=== PATIENT | female | born 1945 | race Caucasian/White ===

== ENCOUNTER 2022-09-10 13:31 | Inpatient (IN) ==
--- NOTE | 2022-09-10 13:52 | Emergency Department Note ---
History of Present Illness General Chief complaint: Foot Injury/Pain Stated complaint: REF BY , RT FOOT INJURY Time Seen by Provider: 09/10/22 13:51 History of Present Illness Maximum Pain Intensity: 4 This 76-year-old female patient presents to the emergency department for evalu ation of osteomyelitis of the right second toe as well as a cellulitis of the right leg. She saw Dr. Galloway today who confirmed the infection in the toe and sent her to the ER for a possible OR add-on. The patient has a history of diabetes and pacemaker. She states that she has had the infection for the past month. She has a black lab at home and stepped on her foot about 1 month ago. The patient thought the toe might be broken, but did not see anyone about it. About 1 week ago she saw Dr. Galloway because the toe and foot got very red and more painful and she was started on Keflex. Today she saw Dr. Galloway for follow up and he noted that the infection got a lot worse. Coumadin is listed on her med list from 2010, but she is now on Xarelto per her med list. Also takes pregabalin 200 mg, omeprazole 40 mg, Jardiance 25 mg, Ranolazine 500 mg, Metoprolol 50 mg, and atorvastatin 40 mg in addition to the Xarelto 20 mg. She had coffee and 3 cookies at 6 am, but has not had anything else to eat or drink today. The patient gives permission to speak with her daughter Dilma who is a nurse at [phone]. Home Medications Medication Instructions Recorded Confirmed Type atorvastatin 40 mg tablet 40 mg PO HS 09/10/22 09/10/22 History cephalexin 500 mg capsule 500 mg PO Q8H 09/10/22 09/10/22 History dulaglutide 3 mg/0.5 mL 3 mg subcut USEASDIRECTD 09/10/22 09/10/22 History subcutaneous pen injector (Trulicity) empagliflozin 25 mg tablet 25 mg PO DAILY 09/10/22 09/10/22 History (Jardiance) insulin degludec 100 unit/mL (3 50 unit subcut DAILY 09/10/22 09/10/22 History mL) subcutaneous pen metoprolol succinate 50 mg 50 mg PO QAM 09/10/22 09/10/22 History tablet,extended release 24 hr omeprazole 40 mg capsule,delayed 40 mg PO DAILY 09/10/22 09/10/22 History release pregabalin 200 mg capsule 200 mg PO QAM 09/10/22 09/10/22 History ranolazine 500 mg tablet,extended 500 mg PO QAM 09/10/22 09/10/22 History release,12 hr rivaroxaban 20 mg tablet (Xarelto) 20 mg PO QAM 09/10/22 09/10/22 History Allergies Allergy/AdvReac Type Severity Reaction Status Date / Time azithromycin Allergy Unknown Unknown Verified 04/20/19 10:23 chocolate flavor Allergy Unknown "my airway Unverified 04/22/10 07:19 can close off" coconut AdvReac Unknown "nausea Verified 04/22/10 08:14 and vomiting" Past Med/Surg History Medical History (Updated 09/11/22 @ 00:13 by Cici Sahni PA-C) Acquired deformity of left foot Atrial fibrillation Callus Diabetes mellitus with diabetic polyneuropathy Encounter for pre-operative examination Foot swelling Hallux rigidus, left foot Hallux rigidus, right foot History of pacemaker 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 Surgical History H/O section Hx of shoulder replacement S/P cardiac pacemaker procedure Family History Other Family history unknown Social History Smoking Status: Never smoker Hx Alcohol Use: No Hx Substance Use: No Preferred Language: Mohawk Communication Ability: Effective [employer] Required: No Beliefs That Will Affect Care: None Current Living Situation: Family Current Living Situation Comment: Lives at home with grandson and dog Other Information That Helps Us Care for You: Yes ( 3 years ago) Feels Safe at Home: Yes Safety Concerns: Feels Safe At This Time Assistive Devices: Cane and Walker Assistive Devices Comment: has walker and cane at home, reports does not use them Review of Systems See HPI for pertinent positives & negatives. Physical Exam Vital Signs Vital Signs - 24 hr 09/10/22 13:43 09/10/22 15:02 09/10/22 17:45 Temperature 36.5 C 36.6 C Temperature Source Oral Oral Pulse Rate 64 68 Pulse Rate [Finger] 72 Respiratory Rate 18 18 Respiratory Effort / Characteristics Non-Labored Spontaneous Respiratory Depth Normal Respiratory Pattern Regular Blood Pressure 155/74 H Blood Pressure [Right Arm] 153/71 H Blood Pressure Mean 101 Blood Pressure Mean [Right Arm] 98 Blood Pressure Position Sitting Blood Pressure Position [Right Arm] Sitting Pulse Oximetry 99 98 Oxygen Delivery Method Room Air Room Air Sepsis Recent Fever Within 48 Hours No Sepsis New/Unexplained Change in Mental Status No Sepsis Action Taken by Nursing No Action Required VITALS: Vitals are noted on the nurse's note and reviewed by myself. GENERAL: Non toxic, no acute distress, non-diaphoretic. SKIN: There is erythema, mild edema, and mild warmth mainly to the right foot, but with some extension to the distal tib/fib area The patient's right second toe is erythematous, edematous, and has an ulcerative area to the plantar aspect of the toe. Mild seepage present. Capillary refill <2 sec. EYES: PERRLA. EOMI. Conjunctivae without injection, sclerae without icterus. MOUTH: Mucous membranes moist. Uvula midline. Airway patent. NECK: Supple without nuchal rigidity. HEART: Regular rate and rhythm without murmurs gallops or rubs. LUNGS: Clear to auscultation bilaterally without wheezes, rales or rhonchi. No retractions or accessory muscle use. ABDOMEN: Positive bowel sounds x 4. Normal tympanic percussion. Soft, nontender, without masses or organomegaly. Saldana sign negative. No guarding or rebound tenderness. No focal RLQ or LLQ tenderness. MUSCULOSKELETAL: The patient is tender to palpation diffusely over the right foot, but mostly tender to palpation over the right second toe. Dorsalis pedis and posterior tibial pulses 2+ Course Administered Medications Atorvastatin Calcium (Atorvastatin 40 Mg Tab) 40 mg PO HS TRAMAINE Stop: 10/10/22 20:59 Last Admin: 09/10/22 21:58 Dose: 40 mg Documented By: JOSIAS Cefepime HCl 2,000 mg/ Syringe 20 mls @ 5 mls/min IV Q8H TRAMAINE; Protocol Stop: 10/23/22 00:00 Last Admin: 09/10/22 23:24 Dose: 5 mls/min Documented By: JOSIAS Magnesium Sulfate/Dextrose (Magnesium Sulfate / D5w) 1 gm in 100 mls @ 50 mls/hr IV Q2H TRAMAINE Stop: 09/11/22 02:59 Last Admin: 09/10/22 23:27 Dose: 50 mls/hr Documented By: JOSIAS Insulin Aspart (Insulin Aspart Per Unit Charge) 0 units SC ACHS TRAMAINE Stop: 10/10/22 20:34 Last Admin: 09/10/22 22:14 Dose: Not Given Documented By: JOSIAS Co-signed By: [place] Admin: 09/10/22 22:13 Dose: Not Given Documented By: GCB Co-signed By: [place] Discontinued Medications Bupivacaine HCl (Bupivacaine 0.5 % 5 Mg/1 Ml Mpf 30ml Vial) Confirm Administered Dose 30 ml .ROUTE .STK-MED ONE Stop: 09/10/22 18:16 Last Admin: 09/10/22 18:56 Dose: 30 ml Documented By: [id number] Hydralazine HCl (Hydralazine Hcl 20 Mg/Ml Vial) 5 mg IV NOW ONE Stop: 09/10/22 21:57 Last Admin: 09/10/22 22:18 Dose: 5 mg Documented By: JOSIAS Sodium Chloride (Nss) 500 mls @ 999 mls/hr IV .Q31M ONE Stop: 09/10/22 14:49 Last Infusion: 09/10/22 20:35 Dose: 0 mls/hr Documented By: Admin: 09/10/22 15:17 Dose: 999 mls/hr Documented By: SAMIRA Cefepime HCl (Maxipime) 20 mls @ 5 mls/min IV ONE STA; Protocol Stop: 09/10/22 16:01 Last Admin: 09/10/22 22:39 Dose: Not Given Documented By: JOSIAS Magnesium Sulfate/Dextrose (Magnesium Sulfate / D5w) 1 gm in 100 mls @ 50 mls/hr IV ONE ONE Stop: 09/10/22 18:05 Last Admin: 09/10/22 22:49 Dose: Not Given Documented By: JOSIAS Medical Decision Making Differential Diagnosis Differential diagnosis includes osteomyelitis, cellulitis, abscess, necrosis, DVT, SVT, fracture, or others. Laboratory Data Attestation: I reviewed the patient's lab results. 09/10/22 14:30 09/10/22 14:30 Lab Results 09/10/22 09/10/22 09/10/22 Range/Units 14:30 14:30 14:30 WBC 5.95 (4.8-10.8) K/ul RBC 4.40 (4.20-5.40) M/uL Hgb 12.0 (12.0-16.0) g/dl Hct 36.3 L (37.0-47.0) % MCV 82.5 (80.0-100.0) fL MCH 27.3 (25.0-34.0) pg MCHC 33.1 (32.0-36.0) g/dL RDW Std Deviation 42.1 (36.4-46.3) fL RDW Coeff of Aletha 14.2 (11.5-14.5) % Plt Count 174 (130-400) K/uL MPV 11.6 (9.4-12.4) fL Immature Gran % (Auto) 0.3 % Neut % (Auto) 68.6 % Lymph % (Auto) 15.6 % [place] % (Auto) 10.1 % Eos % (Auto) 4.2 % Baso % (Auto) 1.2 % Neut # (Auto) 4.08 (1.40-6.50) K/uL Lymph # (Auto) 0.93 L (1.2-3.4) K/uL [place] # (Auto) 0.60 H (0.11-0.59) K/uL Eos # (Auto) 0.25 (0-0.50) K/uL Baso # (Auto) 0.07 (0-0.2) K/uL Immature Gran # (Auto) 0.02 (0.01-0.20) K/uL PT 12.1 H (9.0-12.0) Seconds INR 1.1 (0.9-1.1) APTT 31.1 H (21.0-31.0) Seconds PTT Ratio 1.1 Sodium (136-145) mmol/L Potassium (3.5-5.1) mmol/L Chloride (98-107) mmol/L Carbon Dioxide (21-32) mmol/L Anion Gap (3-11) BUN (6-23) mg/dl Creatinine (0.6-1.2) mg/dl Est Cr Clr Drug Dosing ml/min Est GFR ( Amer) ml/min Est GFR (Non-Af Amer) ml/min BUN/Creatinine Ratio (10-20) Glucose (70-99(Fasting)) mg/dl Lactate 1.1 (0.4-2.0) mmol/L Calcium (8.6-10.3) mg/dl Magnesium (1.7-2.4) mg/dl Total Bilirubin (0.2-1.0) mg/dl AST (13-39) U/L ALT (7-52) U/L Alkaline Phosphatase (34-104) U/L Total Protein (6.0-8.3) gm/dl Albumin (3.4-5.0) gm/dl Globulin (2.5-4.0) gm/dl Albumin/Globulin Ratio (0.9-2) Procalcitonin (0-0.5) ng/ml SARS-CoV-2, RNA, NAAT (NEGATIVE) 09/10/22 09/10/22 09/10/22 Range/Units 14:30 14:30 14:39 WBC (4.8-10.8) K/ul RBC (4.20-5.40) M/uL Hgb (12.0-16.0) g/dl Hct (37.0-47.0) % MCV (80.0-100.0) fL MCH (25.0-34.0) pg MCHC (32.0-36.0) g/dL RDW Std Deviation (36.4-46.3) fL RDW Coeff of Aletha (11.5-14.5) % Plt Count (130-400) K/uL MPV (9.4-12.4) fL Immature Gran % (Auto) % Neut % (Auto) % Lymph % (Auto) % [place] % (Auto) % Eos % (Auto) % Baso % (Auto) % Neut # (Auto) (1.40-6.50) K/uL Lymph # (Auto) (1.2-3.4) K/uL [place] # (Auto) (0.11-0.59) K/uL Eos # (Auto) (0-0.50) K/uL Baso # (Auto) (0-0.2) K/uL Immature Gran # (Auto) (0.01-0.20) K/uL PT (9.0-12.0) Seconds INR (0.9-1.1) APTT (21.0-31.0) Seconds PTT Ratio Sodium 139 (136-145) mmol/L Potassium 3.7 (3.5-5.1) mmol/L Chloride 105 (98-107) mmol/L Carbon Dioxide 27 (21-32) mmol/L Anion Gap 7 (3-11) BUN 14 (6-23) mg/dl Creatinine 0.79 (0.6-1.2) mg/dl Est Cr Clr Drug Dosing 62.6 ml/min Est GFR ( Amer) 84.9 ml/min Est GFR (Non-Af Amer) 73.2 ml/min BUN/Creatinine Ratio 17.7 (10-20) Glucose 91 (70-99(Fasting)) mg/dl Lactate (0.4-2.0) mmol/L Calcium 9.3 (8.6-10.3) mg/dl Magnesium 1.2 L (1.7-2.4) mg/dl Total Bilirubin 1.2 H (0.2-1.0) mg/dl AST 26 (13-39) U/L ALT 11 (7-52) U/L Alkaline Phosphatase 85 (34-104) U/L Total Protein 8.0 (6.0-8.3) gm/dl Albumin 3.2 L (3.4-5.0) gm/dl Globulin 4.8 H (2.5-4.0) gm/dl Albumin/Globulin Ratio 0.7 L (0.9-2) Procalcitonin < 0.05 (0-0.5) ng/ml SARS-CoV-2, RNA, NAAT NEGATIVE (NEGATIVE) Imaging Data Radiologist's Impression: Chest X-Ray 09/10/22 14:19 XR chest 1V portable CLINICAL HISTORY: pre-op TECHNIQUE: Single frontal radiograph of the chest was obtained. Comparison: None available at the time of this dictation. FINDINGS: Dual lead pacemaker is seen. Left humeral plate and screw fixation hardware is seen. Right reverse shoulder arthroplasty is seen. Cardiomegaly is noted. The lungs are clear. No evidence of pleural effusion or pneumothorax. IMPRESSION: No acute chest disease. ACT 112: Negative or not required by law. Electronically signed by: Larry Lamb M.D. 09/10/2022 3:19 PM Foot X-Ray 09/10/22 14:19 RIGHT FOOT 3 VIEWS CLINICAL HISTORY: Right foot infection. FINDINGS: 3 views of the right foot are obtained. No prior studies are available for comparison at the time of dictation. The skeletal structures are osteopenic. No acute fracture is seen. There is chronic posttraumatic deformity of the fourth proximal phalanx. Erosive destructive change is seen involving the tuft of the second distal phalanx with overlying soft tissue edema and subcutaneous gas. This is consistent with osteomyelitis. No additional foci of bony erosion are seen throughout the foot. There are large dorsal and plantar heel spurs. Mild osteoarthritic change is seen throughout the foot, greatest at the first metatarsophalangeal joint. Diffuse soft tissue edema is present throughout the foot. IMPRESSION: 1. Erosive destructive change involving the tuft of the second distal phalanx is consistent with osteomyelitis. 2. No additional foci of bony destruction are seen throughout the remainder of the foot. 3. Diffuse soft tissue edema. Electronically signed by: Raul Cueto M.D. 09/10/2022 3:17 PM [facility] Narrative I examined the patient. The patient has failed outpatient treatment with Keflex. I spoke with Dr. Galloway of podiatry who confirmed that he sent the patient to the ER pending availability of the OR to perform a right second toe amputation due to underlying osteomyelitis. He requested preop work-up to be completed and the hospitalist consulted for admission. He stated that he would be in touch with the OR and would present to take the patient to the OR when the OR was available. He did not want the patient to receive antibiotics until after a deep wound culture was able to be obtained during surgery. The patient is on Xarelto, but she does not remember if she took her Xarelto this morning or not. An IV lock was placed and labs were drawn. She was given 500 mL normal saline solution bolus. She declined any medication for pain while in the emergency department. EKG was interpreted by myself as normal sinus rhythm at 67 bpm with no acute ST or T wave changes. CBC with no leukocytosis or anemia. Platelet count is normal. PT 12.1, INR 1.1, APTT 31.1. Total bilirubin 1.2, but CMP otherwise without significant abnormalities. Magnesium 1.2. Lactate and procalcitonin were normal. Blood cultures are pending. COVID-negative. Chest x-ray was interpreted by myself and read by radiology as above and shows no acute cardiopulmonary etiology. X-rays of the right foot were interpreted by myself and read by radiology as above and shows erosive destructive changes involving the tuft of the second distal phalanx consistent with osteomyelitis. No additional bony destruction seen without the remainder of the foot. Diffuse soft tissue edema. I had a meaningful discussion about this patient with Dr. Raza who agrees with my assessment and the treatment plan. I spoke with the on-call hospitalist who agreed to admit the patient. Please refer to their dictations for further details. The patient was taken to the OR by Dr. Galloway for presumed amputation of the right second toe secondary to the osteomyelitis. Please refer to his dictation for further details. The patient's care was transferred in stable condition. Impression & Plan Osteomyelitis of second toe of right foot, Diabetes mellitus with diabetic polyneuropathy, Chronic anticoagulation Discharge Plan Visit Data Chief Complaint: Foot Injury/Pain Stated Complaint: REF BY , RT FOOT INJURY ED Provider: Nathan Raza ED Midlevel Provider: Cici Sahni Discharge Problem: Osteomyelitis of second toe of right foot, Diabetes mellitus with diabetic polyneuropathy, Chronic anticoagulation Patient Disposition: Admitted As Inpatient Condition: Good
[2022-09-10] MEDS ORDERED: SODIUM CHLORIDE 0.9% 500 ML IV ONE (14:19)
--- NOTE | 2022-09-10 15:14 | History & Physical Report ---
Date of Service September 10, 2022 Assessment & Plan (1) Osteomyelitis of second toe of right foot: Plan: -Admit to [facility] -Wound culture, blood cultures x2, WBC 5.95 -Started po keflex on 09/08, leg continues to be erythematous, edematous -Xray reviewed showing osteomyelitis -Initiate cefepime 2 g q8H to cover for Pseudomonas with history of diabetes -Consult orthopedics, Dr. Galloway as he sent her in from his office - obtain deep wound culture intraoperatively -EKG and CXR obtained preoperatively- no acute findings -Keep n.p.o. for now -Last dose of Xarelto was on 09/09 (2) Diabetes mellitus with diabetic polyneuropathy: Plan: -Check A1c with a.m. labs -Takes Trulicity on , did not get it this morning, also takes Lantus 50 units every morning -ISS with Accu-Cheks ACHS (3) Atrial fibrillation: (4) Chronic anticoagulation: (5) Hypomagnesemia: (6) S/P cardiac pacemaker procedure: Plan: -Currently in normal sinus rhythm, rate controlled with heart rate in the mid 60s -Holding Xarelto, last dose was on 09/09 -Continue metoprolol 25 mg daily -Pacemaker was placed in February 2022, had this done in [facility] - Administer 1g IV mag for replacement DVT PPx: - teds, scds, holding xarelto in the setting of acute surgical procedure CODE: DNR/DNI Dispo: From home, likely to remain in the hospital x 1-2 days A total of 76 minutes were spent with greater than 50% of that time face to face with the patient, personally reviewing all current laboratories, imaging studies, past medication reconciliation, outpatient chart review, and discussion with specialists to collaborate care for the patient with attending. Please see attending documentation for corrections and/or additions. 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 Galloway's office with podiatry for right great toe osteomyelitis. She reports she was stepped on her dog 3 weeks ago, and wound continued to worsen. Patient did take Keflex x1 week, had a x-ray obtained in the outpatient setting which was suspicious for osteomyelitis. She was referred here from the office for possible great toe amputation. About 2 weeks ago the wound became red up past her knee, foot was swollen, and was started on kelfex on Friday 09/08. After being seen in the outpatient office earlier today, Dr. Galloway thought that this should not wait any longer, and therefore sent her to the ER. She denies any fever, chills or sweats. Reports walking is very painful, has nearly fallen, denies using ambulatory devices. Allergies Allergy/AdvReac Type Severity Reaction Status Date / Time azithromycin Allergy Unknown Unknown Verified 04/20/19 10:23 chocolate flavor Allergy Unknown "my airway Unverified 04/22/10 07:19 can close off" coconut AdvReac Unknown "nausea Verified 04/22/10 08:14 and vomiting" Home Medications Medication Instructions Recorded Confirmed Type atorvastatin 40 mg tablet 40 mg PO HS 09/10/22 09/10/22 History cephalexin 500 mg capsule 500 mg PO Q8H 09/10/22 09/10/22 History dulaglutide 3 mg/0.5 mL 3 mg subcut USEASDIRECTD 09/10/22 09/10/22 History subcutaneous pen injector (Trulicity) empagliflozin 25 mg tablet 25 mg PO DAILY 09/10/22 09/10/22 History (Jardiance) insulin degludec 100 unit/mL (3 50 unit subcut DAILY 09/10/22 09/10/22 History mL) subcutaneous pen metoprolol succinate 50 mg 50 mg PO QAM 09/10/22 09/10/22 History tablet,extended release 24 hr omeprazole 40 mg capsule,delayed 40 mg PO DAILY 09/10/22 09/10/22 History release pregabalin 200 mg capsule 200 mg PO QAM 09/10/22 09/10/22 History ranolazine 500 mg tablet,extended 500 mg PO QAM 09/10/22 09/10/22 History release,12 hr rivaroxaban 20 mg tablet (Xarelto) 20 mg PO QAM 09/10/22 09/10/22 History Past Med/Surg History Medical History Acquired deformity of left foot Callus Diabetes mellitus with diabetic polyneuropathy Foot swelling Hallux rigidus, left foot Hallux rigidus, right foot History of pacemaker 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 Surgical History H/O section Hx of shoulder replacement S/P cardiac pacemaker procedure Family History Other Family history unknown Social History Smoking Status: Never smoker Hx Alcohol Use: No Hx Substance Use: No Feels Safe at Home: Yes Review of Systems Review of Systems: Constitutional: No fever, sweats or chills Eyes: No diplopia, no worsening or blurred vision ENT: normal hearing, no trouble swallowing Respiratory: No cough, sputum, dyspnea at rest or on exertion Cardiovascular: No chest pain, tightness or palpitations Abdomen: No pain, nausea, vomiting, diarrhea or constipation Musculoskeletal: As per HPI, R foot pain, difficulty walking on it, redness, swelling, otherwise no joint pain, calf pain, swelling Neurologic: No weakness, numbness/tingling, or balance problems Psychiatric: No anxiety , + depression after 3 years ago Skin: No rash or itch Physical Exam Physical Exam: General: awake, alert, no apparent distress Head: Normocephalic, atraumatic ENT: PERRL, EOMI, no pharyngeal exudate, mucous membranes moist Chest: Clear to auscultation, on room air, +pacemaker in left chest wall, no adventitious breath sounds Cardiac: Regular rate and rhythm, no murmur, no JVD, normal peripheral pulses, good capillary refill Abdominal: obese, NABS x 4 quadrants, soft, nondistended, nontender to palpation, no rebound or guarding Extremities: RLE second toe with wound involving the tip of the toe, erythema extends to the mid haynes, edema 2+ bilateral leg, otherwise normal inspection, no peripheral edema or erythema, calfs nontender to palpation Psych: Normal mood and affect, slightly anxious awaiting procedure Neuro: AAO x 3, strength intact bilaterally and rated 5/5, no motor deficits, speech is clear, no peripheral sensory deficits Results & Data Results & Data Vital Signs (Past 12 Hours) Vital Signs Temp Pulse Resp BP Pulse Ox O2 Del Method 09/10/22 15:02 68 09/10/22 13:43 36.5 C 64 18 155/74 H 99 Room Air Laboratory Results 09/10/22 14:52 Aerobic Blood Culture - Pending Blood Anaerobic Blood Culture - Pending 09/10/22 14:30 Aerobic Blood Culture - Pending Blood Anaerobic Blood Culture - Pending 09/10/22 14:30 Lactate 1.1 Diagnostic Findings Chest X-Ray 09/10/22 14:19 XR chest 1V portable CLINICAL HISTORY: pre-op TECHNIQUE: Single frontal radiograph of the chest was obtained. Comparison: None available at the time of this dictation. FINDINGS: Dual lead pacemaker is seen. Left humeral plate and screw fixation hardware is seen. Right reverse shoulder arthroplasty is seen. Cardiomegaly is noted. The lungs are clear. No evidence of pleural effusion or pneumothorax. IMPRESSION: No acute chest disease. ACT 112: Negative or not required by law. Electronically signed by: Larry Lamb M.D. 09/10/2022 3:19 PM Foot X-Ray 09/10/22 14:19 RIGHT FOOT 3 VIEWS CLINICAL HISTORY: Right foot infection. FINDINGS: 3 views of the right foot are obtained. No prior studies are available for comparison at the time of dictation. The skeletal structures are osteopenic. No acute fracture is seen. There is chronic posttraumatic deformity of the fourth proximal phalanx. Erosive destructive change is seen involving the tuft o f the second distal phalanx with overlying soft tissue edema and subcutaneous gas. This is consistent with osteomyelitis. No additional foci of bony erosion are seen throughout the foot. There are large dorsal and plantar heel spurs. Mild osteoarthritic change is seen throughout the foot, greatest at the first metatarsophalangeal joint. Diffuse soft tissue edema is present throughout the foot. IMPRESSION: 1. Erosive destructive change involving the tuft of the second distal phalanx is consistent with osteomyelitis. 2. No additional foci of bony destruction are seen throughout the remainder of the foot. 3. Diffuse soft tissue edema. Electronically signed by: Raul Cueto M.D. 09/10/2022 3:17 PM ECG Additional Comments: Reviewed, pt is in NSR currently, QTC 458 Code Status & VTE Plan Code Status DNR/DNI discussed with the patient at bedside Supervising Physician Co-Signing Physician Notes I have seen and examined the patient and have discussed the case with the provider above. I agree with the assessment and plan as stated. 76 yo F afternoon with worsening right second toe pain and RLE cellulitis refractory to oral antibiotics. She reports that her dog stepped on her right foot one month ago and she still feels pain, asks if there was a fracture in her foot. Images were taken in the podiatry office. She denies fevers or chills and is not septic. On exam she is hemodynamically stable and afebrile. Cardiopulmonary exam unremarkable. LLE with fungal nail infections and poorly managed. There is a zo cellulitis of her RLE to just distal to the knee. Erythema involved second toe with shallow ulceration. No leukocytosis on CBC. Chemistry within normal limits. Right foot xray reveals reosive destructive change involving the second distal phalanx consistent with osteomyelitis. No additional bony destruction is seen throughout the remainder of the foot. 1. Right second toe osteomyelitis 2. Toe ulceration 3. DMII 76 yo diabetic female presenting with toe ulceration with osteomyelitis and complicated diabetic foot infection with overlying cellulitis. Agree with cefepime IV and management per surgery. Cont supportive care efforts. A1C pending. Per outpatient records review, last A1C was May 2021 and was 7.5. DO Ernst
[2022-09-10 15:16] LABS: Basophils # (auto) 0.07 K/uL (0-0.2); Basophils % (auto) 1.2 %; Eosinophils # (auto) 0.25 K/uL (0-0.50); Eosinophils % (auto) 4.2 %; Hematocrit (blood only) 36.3 % (37.0-47.0); Immature Granulocytes # (auto) 0.02 K/uL (0.01-0.20); Immature Granulocytes % (auto) 0.3 %; Lymphocytes # (auto) 0.93 K/uL (1.2-3.4); Lymphocytes % (auto) 15.6 %; Mean Corpuscular Hemoglobin 27.3 pg (25.0-34.0); Mean Corpuscular Hgb Conc 33.1 g/dL (32.0-36.0); Mean Corpuscular Volume 82.5 fL (80.0-100.0); Mean Platelet Volume 11.6 fL (9.4-12.4); Monocytes % (auto) 10.1 %; Neutrophils # (auto) 4.08 K/uL (1.40-6.50); Neutrophils % (auto) 68.6 %; Platelet Count 174 K/uL (130-400); RDW Coefficient of Variation 14.2 % (11.5-14.5); RDW Standard Deviation 42.1 fL (36.4-46.3); White Blood Count 5.95 K/ul (4.8-10.8)
--- NOTE | 2022-09-10 15:18 | XRay Report ---
RIGHT FOOT 3 VIEWS CLINICAL HISTORY: Right foot infection. FINDINGS: 3 views of the right foot are obtained. No prior studies are available for comparison at th e time of dictation. The skeletal structures are osteopenic. No acute fracture is seen. There is manager medicaid chastity posttraumatic deformity of the fourth proximal phalanx. Erosive destructive change is seen involv ing the tuft of the second distal phalanx with overlying soft tissue edema and subcutaneous gas. This is consistent with osteomyelitis. No additional foci of bony erosion are seen throughout the foot. T here are large dorsal and plantar heel spurs. Mild osteoarthritic change is seen throughout the foot, greatest at the first metatarsophalangeal joint. Diffuse soft tissue edema is present throughout the foot. IMPRESSION: 1. Erosive destructive change involving the tuft of the second distal phalanx is consistent with oste omyelitis. 2. No additional foci of bony destruction are seen throughout the remainder of the foot. 3. Diffuse soft tissue edema. Electronically signed by: Raul Cueto M.D. 09/10/2022 3:17 PM
[2022-09-10 15:19] LABS: Albumin Globulin Ratio 0.7 (0.9-2); Albumin Level 3.2 gm/dl (3.4-5.0); BUN Creatinine Ratio 17.7 (10-20); Bilirubin,Total 1.2 mg/dl (0.2-1.0); Calcium 9.3 mg/dl (8.6-10.3); Creatinine Clr Calc Pharmacy 62.6 ml/min; Est GFR (African American) 84.9 ml/min; Est GFR (Non-African American) 73.2 ml/min; Globulin 4.8 gm/dl (2.5-4.0); Magnesium 1.2 mg/dl (1.7-2.4); Potassium 3.7 mmol/L (3.5-5.1)
--- NOTE | 2022-09-10 15:20 | XRay Report ---
XR chest 1V portable CLINICAL HISTORY: pre-op TECHNIQUE: Single frontal radiograph of the chest was obtained. Comparison: None available at the time of this dictation. FINDINGS: Dual lead pacemaker is seen. Left humeral plate and screw fixation hardware is seen. Right reverse sh oulder arthroplasty is seen. Cardiomegaly is noted. The lungs are clear. No evidence of pleural effus ion or pneumothorax. IMPRESSION: No acute chest disease. ACT 112: Negative or not required by law. Electronically signed by: Larry Lamb M.D. 09/10/2022 3:19 PM
[2022-09-10 15:39] LABS: INR 1.1 (0.9-1.1); Partial Thromboplastin Ratio 1.1; Partial Thromboplastin Time 31.1 Seconds (21.0-31.0); Prothrombin Time 12.1 Seconds (9.0-12.0)
[2022-09-10] MEDS ORDERED: CEFEPIME 20 ML IV STA (15:58)
[2022-09-10] MEDS ORDERED: MAGNESIUM SULFATE / D5W 1 GM/100 ML BAG IV ONE (16:06)
--- NOTE | 2022-09-10 17:33 | Electrocardiogram Report ---
Test Reason : Blood Pressure : / mmHG Vent. Rate : 067 BPM Atrial Rate : 067 BPM P-R Int : 206 ms QRS Dur : 086 ms QT Int : 434 ms P-R-T Axes : 076 031 063 degrees QTc Int : 458 ms Normal sinus rhythm Normal ECG When compared with ECG of 23-APR-2010 11:30, Sinus rhythm has replaced Atrial flutter Confirmed by Devon De León ([id number]) on 09/10/2022 5:33:25 PM Referred By: Hever Galloway Confirmed By:Ascencion De León
--- NOTE | 2022-09-10 17:41 | Anesthesiology Consultation ---
Date of Service September 10, 2022 Assessment & Plan (1) Encounter for pre-operative examination: Chart Review Chart Review: Acceptable Risk for Surgery and Patient NOT seen in Pre Admission Testing Consults Requested none History Surgery Operation Date: 09/10/22 17:20 Proposed Procedures p Right Second Toe Amputation - Hever Galloway, DPM, MS Height/Weight Height: 5 ft 3 in Weight: 82.4 kg Allergies Allergy/AdvReac Type Severity Reaction Status Date / Time azithromycin Allergy Unknown Unknown Verified 04/20/19 10:23 chocolate flavor Allergy Unknown "my airway Unverified 04/22/10 07:19 can close off" coconut AdvReac Unknown "nausea Verified 04/22/10 08:14 and vomiting" Medications Home Medications Medication Instructions Recorded Confirmed Last Taken atorvastatin 40 mg tablet 40 mg PO HS 09/10/22 09/10/22 09/09/22 cephalexin 500 mg capsule 500 mg PO Q8H 09/10/22 09/10/22 09/09/22 dulaglutide 3 mg/0.5 mL 3 mg subcut USEASDIRECTD 09/10/22 09/10/22 09/03/22 subcutaneous pen injector (Trulicity) empagliflozin 25 mg tablet 25 mg PO DAILY 09/10/22 09/10/22 09/09/22 (Jardiance) insulin degludec 100 unit/mL (3 50 unit subcut DAILY 09/10/22 09/10/22 Unknown mL) subcutaneous pen metoprolol succinate 50 mg 50 mg PO QAM 09/10/22 09/10/22 09/09/22 tablet,extended release 24 hr omeprazole 40 mg capsule,delayed 40 mg PO DAILY 09/10/22 09/10/22 09/09/22 release pregabalin 200 mg capsule 200 mg PO QAM 09/10/22 09/10/22 09/09/22 ranolazine 500 mg tablet,extended 500 mg PO QAM 09/10/22 09/10/22 09/09/22 release,12 hr rivaroxaban 20 mg tablet (Xarelto) 20 mg PO QAM 09/10/22 09/10/22 09/09/22 Past Medical History Medical History (Updated 09/10/22 @ 17:42 by Shiva Bryant MD) Acquired deformity of left foot Atrial fibrillation Callus Diabetes mellitus with diabetic polyneuropathy Encounter for pre-operative examination Foot swelling Hallux rigidus, left foot Hallux rigidus, right foot History of pacemaker 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 Atrial fibrillation: Chronic anticoagulation: S/P cardiac pacemaker procedure: Plan: -Currently in normal sinus rhythm, rate controlled with heart rate in the mid 60s -Holding Xarelto, last dose was on 09/09 -Continue metoprolol 25 mg daily -Pacemaker was placed in February 2022, had this done in [facility] Exercise / Class Metabolic Activity II 4-5 Yardwork/Stairs/Walk up hill Past Family History Family History Other Family history unknown Past Surgical History Surgical History H/O section Hx of shoulder replacement S/P cardiac pacemaker procedure Past Anesthesia History No Hx of Anesthesia Complications and No Family Hx of Anesthesia Complications History of PONV No Hx of PONV and No Hx of Motion Sickness Social History Smoking Status: Never smoker Hx Alcohol Use: No Hx Substance Use: No Physical Exam Vital Signs Last Vital Signs Temp 36.5 C 09/10/22 13:43 Pulse 68 09/10/22 15:02 Resp 18 09/10/22 13:43 BP 155/74 H 09/10/22 13:43 Pulse Ox 99 09/10/22 13:43 O2 Del Method Room Air 09/10/22 13:43 Testing Laboratory Results 09/10/22 14:30 09/10/22 14:30 PT 12.1 Seconds (9.0-12.0) H 09/10/22 14:30 INR 1.1 (0.9-1.1) 09/10/22 14:30 APTT 31.1 Seconds (21.0-31.0) H 09/10/22 14:30 Electrocardiogram Date: 09/10/22 DICTATED BY:Devon De León MD Test Reason : Blood Pressure : / mmHG Vent. Rate : 067 BPM Atrial Rate : 067 BPM P-R Int : 206 ms QRS Dur : 086 ms QT Int : 434 ms P-R-T Axes : 076 031 063 degrees QTc Int : 458 ms Normal sinus rhythm Normal ECG When compared with ECG of 23-APR-2010 11:30, Sinus rhythm has replaced Atrial flutter Confirmed by Devon De León ([id number]) on 09/10/2022 5:33:25 PM Chest X-Ray Date: 09/10/22 XR chest 1V portable CLINICAL HISTORY: pre-op TECHNIQUE: Single frontal radiograph of the chest was obtained. Comparison: None available at the time of this dictation. FINDINGS: Dual lead pacemaker is seen. Left humeral plate and screw fixation hardware is seen. Right reverse shoulder arthroplasty is seen. Cardiomegaly is noted. The lungs are clear. No evidence of pleural effusion or pneumothorax. IMPRESSION: No acute chest disease.
[2022-09-10] MEDS ORDERED: fentaNYL citrate PF 100 MCG/2 ML VIAL ONE (17:51)
[2022-09-10] MEDS ORDERED: LIDOCAINE 2% 2 ML VIAL/AMP(20MG/ML) INFIL ONE (17:52)
[2022-09-10] MEDS ORDERED: PROPOFOL IV EMULSION 10 MG/ML 20 ML VIAL IV ONE (17:52)
--- NOTE | 2022-09-10 17:55 | History & Physical Bridge Note ---
Date of Service September 10, 2022 History & Physical Bridge Note I have examined the patient, reviewed the History & Physical and in the interval since the performance of the History & Physical I have noted the following changes of clinical significance: no changes noted
[2022-09-10] MEDS ORDERED: BUPIVACAINE 0.5 % 5 MG/1 ML MPF 30ML VIAL ONE (18:15)
--- NOTE | 2022-09-10 18:52 | Post Operative Brief Note ---
Immediate Post Op Note v1 Date of Surgery September 10, 2022 Pre & Post Diagnosis Operation Date: 09/10/22 17:20 Pre-Op Diagnosis: Osteomyelitis of second toe of right foot Post-Op Diagnosis: Osteomyelitis of second toe of right foot I identified the patient and participated in the time-out.: Yes Procedure Operation Date: 09/10/22 17:20 Actual Procedures p Right Second Toe Amputation(Right) - Hever Galloway DPM, MS Surgeon Hever Galloway DPM, MS Rubber Curer nne Estimated Blood Loss 0 Findings Consistent with Post-Op Diagnosis necrotic right second toe Specimens right distal phalanx 2nd toe - micro right second toe - pathology
--- NOTE | 2022-09-10 19:04 | Anesthesiology Progress Note ---
Date of Service September 10, 2022 Anesthesia Post Procedure Vital Signs Vital Signs: Temp Pulse Pulse Resp BP BP Pulse Ox 09/10/22 17:45 36.6 C 72 18 153/71 H 98 09/10/22 15:02 68 09/10/22 13:43 36.5 C 64 18 155/74 H 99 O2 Del Method 09/10/22 17:45 Room Air 09/10/22 15:02 09/10/22 13:43 Room Air Transfer of Care Handoff Completed per policy Notes Mental Status: alert / awake / arousable Patient Amnestic to Procedure: Yes Nausea / Vomiting: adequately controlled Pain: adequately controlled Airway Patency, RR, SpO2: stable & adequate BP & HR: stable & adequate Hydration State: stable & adequate Anesthetic Complications: no major complications apparent
[2022-09-10] MEDS ORDERED: ATROPINE SULFATE 0.1 MG/ML 10ML SYR IV PRN (20:35)
[2022-09-10] MEDS ORDERED: GLUCOSE 10 TAB/TUBE PO PRN (20:35)
[2022-09-10] MEDS ORDERED: ePHEDrine sulfate 50 MG/ML AMP IV PRN (20:35)
[2022-09-10] MEDS ORDERED: CARBOHYDRATES FOR HYPOGLYCEMIA PO PRN (20:35)
[2022-09-10] MEDS ORDERED: ACETAMINOPHEN 325 MG TAB PO PRN (20:35)
[2022-09-10] MEDS ORDERED: fentaNYL citrate PF 100 MCG/2 ML VIAL IV PRN (20:35)
[2022-09-10] MEDS ORDERED: GLUCAGON FOR INJ 1 MG VIAL SQ PRN (20:35)
[2022-09-10] MEDS ORDERED: DEXTROSE 50% 50 ML SYRINGE IV PRN (20:35)
[2022-09-10] MEDS ORDERED: ONDANSETRON INJ 2 MG/ML 2 ML VIAL IV PRN ×2 (20:35)
[2022-09-10] MEDS ORDERED: GLUCOSE 40% GEL 15 GM TUBE PO PRN (20:35)
--- NOTE | 2022-09-10 21:17 | Operative Report ---
Post Operative Report Pre & Post Diagnosis Operation Date: 09/10/22 17:20 Pre-Op Diagnosis: Osteomyelitis of second toe of right foot Post-Op Diagnosis: Osteomyelitis of second toe of right foot I identified the patient and participated in the time-out.: Yes Procedure Operation Date: 09/10/22 17:20 Actual Procedures p Right Second Toe Amputation(Right) - Hever Galloway DPM, MS Surgeon Hever Galloway DPM, MS Medical Dir nne Estimated Blood Loss 0 Findings Consistent with Post-Op Diagnosis Necrotic right second toe Specimens 1.) Right second toe - Pathology 2.) Right second distal phalanx - Micro Description of Procedure History of present illness: Patient is a type II diabetic, 76 year old female who is seen for treatment of osteomyelitis of the right second toe. Patient notes a diabetic second toe foot ulcer open for multiple weeks, and X-rays (+) for osteomyelitis of the second toe of right foot. There is also concern for ascending cellulitis and need for source control. Discussed procedure in detail and postoperative recovery. All potential risks, benefits, complications, alternatives, rehab, potential for incomplete relief of symptoms, need for further surgery, DVT, PE, , persistent pain, swelling, scarring, weakness, neurovascular, wound complications and potential for amputations were discussed with patient. Unwanted outcomes such as, but not limited to were reviewed including under correction, overcorrection, return of deformity, infection. All questions were answered. Patient has decided to proceed with procedure as indicated. Preoperative diagnosis: Right second toe diabetic ulcer osteomyelitis distal phalanx Postoperative diagnosis: same Name of operation: Right second toe amputation Surgeon Dr. Galloway Medical Dir: None Anesthesia: local with monitored anesthesia care Hemostasis: pneumatic ankle tourniquet Estimated blood loss: minimal Procedure in detail: Under mild sedation the patient was brought in the operating room placed on the operating table in supine position. A pneumatic ankle tourniquet was then placed about the patient's right ankle. Following IV sedation the foot was then prepped scrubbed and draped in usual aseptic manner. An Esmarch bandage was utilized to exsanguinate the patient's right foot and the pneumatic ankle tourniquet was then inflated. Attention was then directed to a nonhealing diabetic ulcer on the distal aspect of the right second toe. A fishmouth incision was created utilizing a sharp, sterile, #15 blade. The incision which was deepened through subcutaneous tissue using sharp blunt dissection. Care was taken to identify and retract all vital neurovascular structures. All bleeders were ligated and cauterized necessary. At this time the right second toe was removed at the proximal inter phalangeal joint and placed on the back table. The distal portion of the right second toe was sent to pathology. Copious amounts of sterile normal saline were utilized to flush the incision site. The skin was then primarily closed utilizing 4-0 nylon in horizontal suture mattress techniques as well as simple suture closure. Upon completion of the procedure the incision was dressed with Betadine soaked Adaptic followed by sterile compressive dressing consisting of 4 x 4's Linda Kerlix ABD the pneumatic ankle tourniquet was inflated and a prompt hyperemic response was noted to all digits of the right foot. An López wrap and postoperative shoe were then applied. The Patient tolerated the procedure and anesthesia well. She was transferred to recovery room vital signs stable. After a period of postoperative monitoring the patient will be re-admitted to the floor. . I attest to the content of the Intraoperative Record and any orders documented therein. Any exceptions are noted below.
[2022-09-10] MEDS ORDERED: hydrALAZINE HCL 20 MG/ML VIAL IV ONE (21:56)
[2022-09-10] MEDS: ATORVASTATIN 40 MG TAB PO SCH (21:58)
[2022-09-10] MEDS: INSULIN ASPART PER UNIT CHARGE SC SCH ×2 (22:13→22:14)
[2022-09-10] MEDS: CEFEPIME 2,000 MG in SYRINGE 0 ML IV SCH (23:24)
[2022-09-10] MEDS: MAGNESIUM SULFATE / D5W 1 GM/100 ML BAG IV SCH (23:27)
[2022-09-11] MEDS: MAGNESIUM SULFATE / D5W 1 GM/100 ML BAG IV SCH (01:32)
[2022-09-11 06:31] LABS: Hematocrit (blood only) 30.3 % (37.0-47.0); Hemoglobin 9.5 g/dl (12.0-16.0); Mean Corpuscular Hemoglobin 25.9 pg (25.0-34.0); Mean Corpuscular Hgb Conc 31.4 g/dL (32.0-36.0); Mean Corpuscular Volume 82.6 fL (80.0-100.0); Mean Platelet Volume 11.4 fL (9.4-12.4); Platelet Count 151 K/uL (130-400); RDW Coefficient of Variation 14.3 % (11.5-14.5); RDW Standard Deviation 42.3 fL (36.4-46.3); Red Blood Count 3.67 M/uL (4.20-5.40)
[2022-09-11 06:50] LABS: BUN Creatinine Ratio 18.8 (10-20); Calcium 8.5 mg/dl (8.6-10.3); Chol HDL Ratio 2.6 (0-5); Creatinine Clr Calc Pharmacy 71.8 ml/min; Est GFR (African American) 98.7 ml/min; Est GFR (Non-African American) 85.2 ml/min; Magnesium 1.7 mg/dl (1.7-2.4); Potassium 3.9 mmol/L (3.5-5.1)
[2022-09-11 07:56] LABS: Estimated Average Glucose 126 mg/dl
[2022-09-11] MEDS ORDERED: VANCOMYCIN CONSULT ACTIVE PRN (08:00)
[2022-09-11] MEDS: METOPROLOL SUCC 50MG EXT REL TAB PO SCH (08:24)
[2022-09-11] MEDS: RANOLAZINE 500 MG ER TAB PO SCH (08:24)
[2022-09-11] MEDS: PANTOprazole 40 MG TAB PO SCH (08:24)
[2022-09-11] MEDS: CEFEPIME 2,000 MG in SYRINGE 0 ML IV SCH ×2 (08:27→16:26)
[2022-09-11] MEDS: PREGABALIN 100 MG CAP PO SCH (08:27)
[2022-09-11] MEDS ORDERED: VANCOMYCIN HCL 2,000 MG in SODIUM CHLORIDE 0.9% 500 ML IV ONE (08:30)
[2022-09-11] MEDS: INSULIN ASPART PER UNIT CHARGE SC SCH ×4 (09:44→22:16)
--- NOTE | 2022-09-11 10:15 | Pharmacy Report ---
Pharmacy PK ABX Note - Date of Service September 11, 2022 - Assessment and Plan Assessment 76 year old F receiving vancomycin/cefepime for treatment of diabetic foot infection s/p R toe amputation. Pertinent microbiologic data includes: toe culture (from operating room, s/p 1 dose of cefepime) growing currently pending. Day # 1 of antimicrobial therapy. Plan Vancomycin * Loading dose: 2000 mg IV x 1 * Maintenance dose: 1000 mg IV every 12 hours * Regimen is predicted to achieve target AUC/HANH of 400-600 mg/L.hr with nephrotoxicity chance of 14% * Random level ordered for: 09/13/22 Pharmacy will continue to follow and will adjust dose/frequency as necessary. Thank you. Pharmacy has transitioned to AUC monitoring for vancomycin. AUC/HANH is the preferred PK/PD target and is associated with decreased risk of nephrotoxicity compared to traditional trough targets.
--- NOTE | 2022-09-11 15:21 | Hospitalist Progress Note ---
Date of Service September 11, 2022 Assessment & Plan (1) Osteomyelitis of second toe of right foot: Plan: Patient had a wound when she stepped on her dog 3 weeks ago; wound continued to worsen. Patient was prescribed Keflex for 1 week Outpatient x-ray was suspicious for osteomyelitis. Patient was then referred to Dr. Galloway for possible amputation. Patient underwent right second toe amputation on 09/10/2022 Continue on cefepime and vancomycin Orthotic consulted PT OT eval pending (2) Diabetes mellitus with diabetic polyneuropathy: Plan: -A1c of 6.0. -Takes Trulicity on , did not get it this morning, also takes Lantus 50 units every morning -ISS with Accu-Cheks ACHS (3) Atrial fibrillation: (4) Chronic anticoagulation: (5) Hypomagnesemia: (6) S/P cardiac pacemaker procedure: Plan: -Currently in normal sinus rhythm, rate controlled with heart rate in the mid 60s -Currently Xarelto on hold. Will resume tomorrow -Continue metoprolol 25 mg daily -Pacemaker was placed in February 2022, had this done in [facility] DVT PPx: -We will resume Xarelto tomorrow. CODE: DNR/DNI Dispo: PT OT and orthotic eval pending Please note the above document was generated using voice recognition software. It may contain grammatical, syntax or spelling errors. Any formal questions or concerns about the content, text or information contained within the body of this dictation should be directly addressed to the provider for clarification Admission and Anticipated Discharge Date Admission Date: September 10, 2022 Subjective Patient seen and examined at bedside. She is comfortably lying on the bed; not in distress. No fever or chills. Pain well controlled Review of Systems Review of Systems: All systems reviewed & are unremarkable except as noted in Subjective Physical Exam Physical Exam: General: awake, alert, no apparent distress Head: Normocephalic, atraumatic ENT: PERRL, EOMI, no pharyngeal exudate, mucous membranes moist Chest: Clear to auscultation, on room air, +pacemaker in left chest wall, no adventitious breath sounds Cardiac: Regular rate and rhythm, no murmur, no JVD, normal peripheral pulses, good capillary refill Abdominal: obese, NABS x 4 quadrants, soft, nondistended, nontender to palpation, no rebound or guarding Extremities: Right lower extremity with bandage; clean dry and intact. Psych: Normal mood and affect, slightly anxious awaiting procedure Neuro: AAO x 3, strength intact bilaterally and rated 5/5, no motor deficits, speech is clear, no peripheral sensory deficits Results & Data Results & Data Vital Signs (Past 12 Hours) Vital Signs Temp Pulse Resp BP Pulse Ox O2 Del Method 09/11/22 08:07 37.1 C 70 16 125/67 93 Room Air 09/11/22 03:18 37.0 C 69 17 113/61 94 Room Air Laboratory Results Laboratory Results WBC 4.90 K/ul (4.8-10.8) 09/11/22 05:36 RBC 3.67 M/uL (4.20-5.40) L 09/11/22 05:36 Hgb 9.5 g/dl (12.0-16.0) L 09/11/22 05:36 Hct 30.3 % (37.0-47.0) L 09/11/22 05:36 MCV 82.6 fL (80.0-100.0) 09/11/22 05:36 MCH 25.9 pg (25.0-34.0) 09/11/22 05:36 MCHC 31.4 g/dL (32.0-36.0) L 09/11/22 05:36 RDW Std Deviation 42.3 fL (36.4-46.3) 09/11/22 05:36 RDW Coeff of Aletha 14.3 % (11.5-14.5) 09/11/22 05:36 Plt Count 151 K/uL (130-400) 09/11/22 05:36 MPV 11.4 fL (9.4-12.4) 09/11/22 05:36 Immature Gran % (Auto) 0.3 % 09/10/22 14:30 Neut % (Auto) 68.6 % 09/10/22 14:30 Lymph % (Auto) 15.6 % 09/10/22 14:30 [place] % (Auto) 10.1 % 09/10/22 14:30 Eos % (Auto) 4.2 % 09/10/22 14:30 Baso % (Auto) 1.2 % 09/10/22 14:30 Neut # (Auto) 4.08 K/uL (1.40-6.50) 09/10/22 14:30 Lymph # (Auto) 0.93 K/uL (1.2-3.4) L 09/10/22 14:30 [place] # (Auto) 0.60 K/uL (0.11-0.59) H 09/10/22 14:30 Eos # (Auto) 0.25 K/uL (0-0.50) 09/10/22 14:30 Baso # (Auto) 0.07 K/uL (0-0.2) 09/10/22 14:30 Immature Gran # (Auto) 0.02 K/uL (0.01-0.20) 09/10/22 14:30 PT 12.1 Seconds (9.0-12.0) H 09/10/22 14:30 INR 1.1 (0.9-1.1) 09/10/22 14:30 APTT 31.1 Seconds (21.0-31.0) H 09/10/22 14:30 PTT Ratio 1.1 09/10/22 14:30 Sodium 136 mmol/L (136-145) 09/11/22 05:36 Potassium 3.9 mmol/L (3.5-5.1) 09/11/22 05:36 Chloride 107 mmol/L (98-107) 09/11/22 05:36 Carbon Dioxide 26 mmol/L (21-32) 09/11/22 05:36 Anion Gap 3 (3-11) 09/11/22 05:36 BUN 13 mg/dl (6-23) 09/11/22 05:36 Creatinine 0.69 mg/dl (0.6-1.2) 09/11/22 05:36 Est Cr Clr Drug Dosing 71.8 ml/min 09/11/22 05:36 Est GFR ( Amer) 98.7 ml/min 09/11/22 05:36 Est GFR (Non-Af Amer) 85.2 ml/min 09/11/22 05:36 BUN/Creatinine Ratio 18.8 (10-20) 09/11/22 05:36 Glucose 86 mg/dl (70-99(Fasting)) 09/11/22 05:36 POC Glucose 108 mg/dl (70-99) H 09/11/22 11:49 Estimat Average Glucose 126 mg/dl 09/11/22 05:36 Hemoglobin A1c 6.0 % (4.5-5.6) H 09/11/22 05:36 Lactate 1.1 mmol/L (0.4-2.0) 09/10/22 14:30 Calcium 8.5 mg/dl (8.6-10.3) L 09/11/22 05:36 Magnesium 1.7 mg/dl (1.7-2.4) 09/11/22 05:36 Total Bilirubin 1.2 mg/dl (0.2-1.0) H 09/10/22 14:30 AST 26 U/L (13-39) 09/10/22 14:30 ALT 11 U/L (7-52) 09/10/22 14:30 Alkaline Phosphatase 85 U/L (34-104) 09/10/22 14:30 Total Protein 8.0 gm/dl (6.0-8.3) 09/10/22 14:30 Albumin 3.2 gm/dl (3.4-5.0) L 09/10/22 14:30 Globulin 4.8 gm/dl (2.5-4.0) H 09/10/22 14:30 Albumin/Globulin Ratio 0.7 (0.9-2) L 09/10/22 14:30 Triglycerides 75 mg/dl (0-150) 09/11/22 05:36 Cholesterol 65 mg/dl (0-200) 09/11/22 05:36 LDL Cholesterol, Calc 25 mg/dl 09/11/22 05:36 VLDL Cholesterol, Calc 15 mg/dl (0-30) 09/11/22 05:36 HDL Cholesterol 25 mg/dl 09/11/22 05:36 Cholesterol/HDL Ratio 2.6 (0-5) 09/11/22 05:36 Procalcitonin < 0.05 ng/ml (0-0.5) 09/10/22 14:30 SARS-CoV-2, RNA, NAAT NEGATIVE (NEGATIVE) 09/10/22 14:39 Impressions Chest X-Ray 09/10/22 14:19 XR chest 1V portable CLINICAL HISTORY: pre-op TECHNIQUE: Single frontal radiograph of the chest was obtained. Comparison: None available at the time of this dictation. FINDINGS: Dual lead pacemaker is seen. Left humeral plate and screw fixation hardware is seen. Right reverse shoulder arthroplasty is seen. Cardiomegaly is noted. The lungs are clear. No evidence of pleural effusion or pneumothorax. IMPRESSION: No acute chest disease. ACT 112: Negative or not required by law. Electronically signed by: Larry Lamb M.D. 09/10/2022 3:19 PM Foot X-Ray 09/10/22 14:19 RIGHT FOOT 3 VIEWS CLINICAL HISTORY: Right foot infection. FINDINGS: 3 views of the right foot are obtained. No prior studies are available for comparison at the time of dictation. The skeletal structures are osteopenic. No acute fracture is seen. There is chronic posttraumatic deformity of the fourth proximal phalanx. Erosive destructive change is seen involving the tuft of the second distal phalanx with overlying soft tissue edema and subcutaneous gas. This is consistent with osteomyelitis. No additional foci of bony erosion are seen throughout the foot. There are large dorsal and plantar heel spurs. Mild osteoarthritic change is seen throughout the foot, greatest at the first metatarsophalangeal joint. Diffuse soft tissue edema is present throughout the foot. IMPRESSION: 1. Erosive destructive change involving the tuft of the second distal phalanx is consistent with osteomyelitis. 2. No additional foci of bony destruction are seen throughout the remainder of the foot. 3. Diffuse soft tissue edema. Electronically signed by: Raul Cueto M.D. 09/10/2022 3:17 PM
[2022-09-11] MEDS: ATORVASTATIN 40 MG TAB PO SCH (22:02)
[2022-09-11] MEDS: VANCOMYCIN HCL 1,000 MG in SODIUM CHLORIDE 0.9% 250 ML IV SCH (22:05)
[2022-09-11] MEDS ORDERED: diphenhydrAMINE Capsule 25 MG CAP PO ONE (23:36)
[2022-09-12] MEDS: CEFEPIME 2,000 MG in SYRINGE 0 ML IV SCH ×3 (00:40→20:12)
--- NOTE | 2022-09-12 06:27 | Orthopedic Progress Note ---
Date of Service September 11, 2022 Assessment & Plan (1) Osteomyelitis of second toe of right foot: Plan: Patient seen, evaluated, and treated. Patient status post Day #1 right second toe amputation DOS: 09/11/22 Dry, sterile, dressing change. Patient is weight bearing as tolerated in surgical shoe. Will continue to follow while in house. Plan Patient seen, evaluated, and treated. Admission and Anticipated Discharge Date Admission Date: September 10, 2022 Subjective Patient seen and examined at bedside. She is status post Day #1 right second toe amputation DOS: 09/11/22. She is comfortably lying on the bed. Review of Systems Review of Systems: All systems reviewed & are unremarkable except as noted in Subjective Physical Exam Constitutional: cooperative and comfortable Eyes: normal visual wong by confrontation Cardiovascular: Rate/Rhythm: regular rate and regular rhythm Musculoskeletal: Extremities: + amputation noted (Right second toe) Skin: + wound (Sutures intact. Skin well copated.) Neurologic: moves all extremities (Loss of epicritic sensation) Psychiatric: Orientation: alert and oriented x 3 Results & Data Vital Signs (Past 12 Hours) Vital Signs Temp Pulse Resp BP Pulse Ox O2 Del Method 09/11/22 23:23 36.9 C 64 16 126/66 96 Room Air
[2022-09-12 07:36] LABS: Basophils # (auto) 0.06 K/uL (0-0.2); Basophils % (auto) 1.1 %; Eosinophils # (auto) 0.35 K/uL (0-0.50); Eosinophils % (auto) 6.3 %; Hematocrit (blood only) 30.8 % (37.0-47.0); Hemoglobin 10.2 g/dl (12.0-16.0); Immature Granulocytes # (auto) 0.03 K/uL (0.01-0.20); Immature Granulocytes % (auto) 0.5 %; Lymphocytes # (auto) 1.03 K/uL (1.2-3.4); Lymphocytes % (auto) 18.6 %; Mean Corpuscular Hemoglobin 27.5 pg (25.0-34.0); Mean Corpuscular Hgb Conc 33.1 g/dL (32.0-36.0); Mean Platelet Volume 11.4 fL (9.4-12.4); Monocytes # (auto) 0.69 K/uL (0.11-0.59); Monocytes % (auto) 12.5 %; Neutrophils # (auto) 3.37 K/uL (1.40-6.50); Platelet Count 149 K/uL (130-400); RDW Coefficient of Variation 14.3 % (11.5-14.5); Red Blood Count 3.71 M/uL (4.20-5.40); White Blood Count 5.53 K/ul (4.8-10.8)
[2022-09-12] MEDS: RANOLAZINE 500 MG ER TAB PO SCH (08:52)
[2022-09-12] MEDS: METOPROLOL SUCC 50MG EXT REL TAB PO SCH (08:52)
[2022-09-12] MEDS: PREGABALIN 100 MG CAP PO SCH (08:52)
[2022-09-12] MEDS: PANTOprazole 40 MG TAB PO SCH (08:52)
[2022-09-12] MEDS: INSULIN ASPART PER UNIT CHARGE SC SCH ×4 (08:52→21:21)
[2022-09-12] MEDS: VANCOMYCIN HCL 1,000 MG in SODIUM CHLORIDE 0.9% 250 ML IV SCH (08:53)
[2022-09-12 09:15] LABS: BUN Creatinine Ratio 18.8 (10-20); Calcium 8.4 mg/dl (8.6-10.3); Creatinine Clr Calc Pharmacy 49.1 ml/min; Est GFR (African American) 63.1 ml/min; Est GFR (Non-African American) 54.4 ml/min; Potassium 4.1 mmol/L (3.5-5.1)
--- NOTE | 2022-09-12 10:21 | Pharmacy Report ---
Pharmacy PK ABX Note - Date of Service September 12, 2022 - Assessment and Plan Assessment 76 yo F receiving Vancomycin and Cefepime for diabetic foot infection. * Day #2 of antimicrobial therapy. * Underwent right 2nd toe amputation yesterday. * Cultures are pending. * Afebrile. No leukocytosis. SCr increased by ~0.4 mg/dL this AM. Plan Vancomycin * Current regimen: 1000 mg IV every 12 hours * Random level obtained 09/12/22 resulted as 17.0 mcg/mL. This is supr atherapeutic. * Change to 750 mg IV every 12 hours. Predicted AUC at steady state: 564 mg/L.hr. * Repeat random level ordered for: 09/14/22 Pharmacy will continue to follow and will adjust dose/frequency as necessary. Thank you. Pharmacy has transitioned to AUC monitoring for vancomycin. AUC/HANH is the preferred PK/PD target and is associated with decreased risk of nephrotoxicity compared to traditional trough targets.
--- NOTE | 2022-09-12 13:16 | Hospitalist Progress Note ---
Date of Service September 12, 2022 Assessment & Plan (1) Osteomyelitis of second toe of right foot: Plan: Patient had a wound when she stepped on her dog 3 weeks ago; wound continued to worsen. Patient was prescribed Keflex for 1 week Outpatient x-ray was suspicious for osteomyelitis. Patient was then referred to Dr. Galloway for possible amputation. Patient underwent right second toe amputation on 09/10/2022 Intra-Op culture shows gram-negative bacilli. Continue on cefepime. Stop vancomycin. Await Intra-Op culture identification and sensitivity. Patient seen by orthotics; fitted for surgical shoe. Continue PT OT while inpatient. (2) Diabetes mellitus with diabetic polyneuropathy: Plan: -A1c of 6.0. -Takes Trulicity on , did not get it this morning, also takes Lantus 50 units every morning -ISS with Accu-Cheks ACHS (3) Atrial fibrillation: (4) Chronic anticoagulation: (5) Hypomagnesemia: (6) S/P cardiac pacemaker procedure: Plan: -Currently in normal sinus rhythm, rate controlled with heart rate in the mid 60s -Xarelto resumed -Continue metoprolol 25 mg daily -Pacemaker was placed in February 2022, had this done in [facility] DVT PPx: -Xarelto CODE: DNR/DNI Dispo: Continue to hospitalize for IV antibiotics. Awaiting final culture and sensitivities from Intra-Op culture. Please note the above document was generated using voice recognition software. It may contain grammatical, syntax or spelling errors. Any formal questions or concerns about the content, text or information contained within the body of this dictation should be directly addressed to the provider for clarification Admission and Anticipated Discharge Date Admission Date: September 10, 2022 Subjective Patient seen and examined at bedside. She is lying comfortably on the bed. Denies any fever or chills. Denies any pain. Afebrile overnight Review of Systems Review of Systems: All systems reviewed & are unremarkable except as noted in Subjective Physical Exam Physical Exam: General: awake, alert, no apparent distress Head: Normocephalic, atraumatic ENT: PERRL, EOMI, no pharyngeal exudate, mucous membranes moist Chest: Clear to auscultation, on room air, +pacemaker in left chest wall, no adventitious breath sounds Cardiac: Regular rate and rhythm, no murmur, no JVD, normal peripheral pulses, good capillary refill Abdominal: obese, NABS x 4 quadrants, soft, nondistended, nontender to palpation, no rebound or guarding Extremities: Right lower extremity with bandage; clean dry and intact. Psych: Normal mood and affect, slightly anxious awaiting procedure Neuro: AAO x 3, strength intact bilaterally and rated 5/5, no motor deficits, speech is clear, no peripheral sensory deficits Results & Data Results & Data Vital Signs (Past 12 Hours) Vital Signs Temp Pulse Resp BP Pulse Ox O2 Del Method 09/12/22 08:03 36.7 C 60 16 151/72 H 96 Room Air Laboratory Results Laboratory Results WBC 5.53 K/ul (4.8-10.8) 09/12/22 06:49 RBC 3.71 M/uL (4.20-5.40) L 09/12/22 06:49 Hgb 10.2 g/dl (12.0-16.0) L 09/12/22 06:49 Hct 30.8 % (37.0-47.0) L 09/12/22 06:49 MCV 83.0 fL (80.0-100.0) 09/12/22 06:49 MCH 27.5 pg (25.0-34.0) 09/12/22 06:49 MCHC 33.1 g/dL (32.0-36.0) 09/12/22 06:49 RDW Std Deviation 43.0 fL (36.4-46.3) 09/12/22 06:49 RDW Coeff of Aletha 14.3 % (11.5-14.5) 09/12/22 06:49 Plt Count 149 K/uL (130-400) 09/12/22 06:49 MPV 11.4 fL (9.4-12.4) 09/12/22 06:49 Immature Gran % (Auto) 0.5 % 09/12/22 06:49 Neut % (Auto) 61.0 % 09/12/22 06:49 Lymph % (Auto) 18.6 % 09/12/22 06:49 [place] % (Auto) 12.5 % 09/12/22 06:49 Eos % (Auto) 6.3 % 09/12/22 06:49 Baso % (Auto) 1.1 % 09/12/22 06:49 Neut # (Auto) 3.37 K/uL (1.40-6.50) 09/12/22 06:49 Lymph # (Auto) 1.03 K/uL (1.2-3.4) L 09/12/22 06:49 [place] # (Auto) 0.69 K/uL (0.11-0.59) H 09/12/22 06:49 Eos # (Auto) 0.35 K/uL (0-0.50) 09/12/22 06:49 Baso # (Auto) 0.06 K/uL (0-0.2) 09/12/22 06:49 Immature Gran # (Auto) 0.03 K/uL (0.01-0.20) 09/12/22 06:49 ESR 41 mm/hr (0-30) H 09/12/22 06:49 PT 12.1 Seconds (9.0-12.0) H 09/10/22 14:30 INR 1.1 (0.9-1.1) 09/10/22 14:30 APTT 31.1 Seconds (21.0-31.0) H 09/10/22 14:30 PTT Ratio 1.1 09/10/22 14:30 Sodium 136 mmol/L (136-145) 09/12/22 06:49 Potassium 4.1 mmol/L (3.5-5.1) 09/12/22 06:49 Chloride 106 mmol/L (98-107) 09/12/22 06:49 Carbon Dioxide 25 mmol/L (21-32) 09/12/22 06:49 Anion Gap 5 (3-11) 09/12/22 06:49 BUN 19 mg/dl (6-23) 09/12/22 06:49 Creatinine 1.01 mg/dl (0.6-1.2) D 09/12/22 06:49 Est Cr Clr Drug Dosing 49.1 ml/min 09/12/22 06:49 Est GFR ( Amer) 63.1 ml/min 09/12/22 06:49 Est GFR (Non-Af Amer) 54.4 ml/min 09/12/22 06:49 BUN/Creatinine Ratio 18.8 (10-20) 09/12/22 06:49 Glucose 126 mg/dl (70-99(Fasting)) H 09/12/22 06:49 POC Glucose 107 mg/dl (70-99) H 09/12/22 11:50 Estimat Average Glucose 126 mg/dl 09/11/22 05:36 Hemoglobin A1c 6.0 % (4.5-5.6) H 09/11/22 05:36 Lactate 1.1 mmol/L (0.4-2.0) 09/10/22 14:30 Calcium 8.4 mg/dl (8.6-10.3) L 09/12/22 06:49 Magnesium 1.7 mg/dl (1.7-2.4) 09/11/22 05:36 Total Bilirubin 1.2 mg/dl (0.2-1.0) H 09/10/22 14:30 AST 26 U/L (13-39) 09/10/22 14:30 ALT 11 U/L (7-52) 09/10/22 14:30 Alkaline Phosphatase 85 U/L (34-104) 09/10/22 14:30 Total Protein 8.0 gm/dl (6.0-8.3) 09/10/22 14:30 Albumin 3.2 gm/dl (3.4-5.0) L 09/10/22 14:30 Globulin 4.8 gm/dl (2.5-4.0) H 09/10/22 14:30 Albumin/Globulin Ratio 0.7 (0.9-2) L 09/10/22 14:30 Triglycerides 75 mg/dl (0-150) 09/11/22 05:36 Cholesterol 65 mg/dl (0-200) 09/11/22 05:36 LDL Cholesterol, Calc 25 mg/dl 09/11/22 05:36 VLDL Cholesterol, Calc 15 mg/dl (0-30) 09/11/22 05:36 HDL Cholesterol 25 mg/dl 09/11/22 05:36 Cholesterol/HDL Ratio 2.6 (0-5) 09/11/22 05:36 Procalcitonin < 0.05 ng/ml (0-0.5) 09/10/22 14:30 Random Vancomycin 17.0 mcg/ml (10-20) 09/12/22 06:49 SARS-CoV-2, RNA, NAAT NEGATIVE (NEGATIVE) 09/10/22 14:39 Impressions Chest X-Ray 09/10/22 14:19 XR chest 1V portable CLINICAL HISTORY: pre-op TECHNIQUE: Single frontal radiograph of the chest was obtained. Comparison: None available at the time of this dictation. FINDINGS: Dual lead pacemaker is seen. Left humeral plate and screw fixation hardware is seen. Right reverse shoulder arthroplasty is seen. Cardiomegaly is noted. The lungs are clear. No evidence of pleural effusion or pneumothorax. IMPRESSION: No acute chest disease. ACT 112: Negative or not required by law. Electronically signed by: Larry Lamb M.D. 09/10/2022 3:19 PM Foot X-Ray 09/10/22 14:19 RIGHT FOOT 3 VIEWS CLINICAL HISTORY: Right foot infection. FINDINGS: 3 views of the right foot are obtained. No prior studies are available for comparison at the time of dictation. The skeletal structures are osteopenic. No acute fracture is seen. There is chronic posttraumatic deformity of the fourth proximal phalanx. Erosive destructive change is seen involving the tuft of the second distal phalanx with overlying soft tissue edema and subcutaneous gas. This is consistent with osteomyelitis. No additional foci of bony erosion are seen throughout the foot. There are large dorsal and plantar heel spurs. Mild osteoarthritic change is seen throughout the foot, greatest at the first metatarsophalangeal joint. Diffuse soft tissue edema is present throughout the foot. IMPRESSION: 1. Erosive destructive change involving the tuft of the second distal phalanx is consistent with osteomyelitis. 2. No additional foci of bony destruction are seen throughout the remainder of the foot. 3. Diffuse soft tissue edema. Electronically signed by: Raul Cueto M.D. 09/10/2022 3:17 PM
[2022-09-12] MEDS: ATORVASTATIN 40 MG TAB PO SCH (20:50)
[2022-09-12] MEDS ORDERED: VANCOMYCIN HCL 750 MG in SODIUM CHLORIDE 0.9% 250 ML IV SCH (22:00)
--- NOTE | 2022-09-12 22:30 | Orthopedic Progress Note ---
Date of Service September 12, 2022 Assessment & Plan (1) Osteomyelitis of second toe of right foot: Plan: Patient seen, evaluated, and treated. Patient status post Day #2 right second toe amputation DOS: 09/11/22 Reviewed wound culture. Awaiting sensativities. Dry, sterile, dressing change. Patient is weight bearing as tolerated in surgical shoe. Will continue to follow while in house. Plan Patient seen, evaluated, and treated. Admission and Anticipated Discharge Date Admission Date: September 10, 2022 Subjective Patient seen and examined at bedside. Patient is status post day #2 right second toe amputation. She has no complaints. Review of Systems Review of Systems: All systems reviewed & are unremarkable except as noted in Subjective Physical Exam Constitutional: cooperative and comfortable Eyes: normal visual wong by confrontation Cardiovascular: Rate/Rhythm: regular rate and regular rhythm Musculoskeletal: Extremities: + amputation noted (Right second toe) Skin: + wound (Sutures intact. Skin well copated.) Neurologic: moves all extremities (Loss of epicritic sensation) Psychiatric: Orientation: alert and oriented x 3 Results & Data Vital Signs (Past 12 Hours) Vital Signs Temp Pulse Resp BP Pulse Ox O2 Del Method 09/12/22 21:15 36.5 C 63 16 147/77 H 95 Room Air 09/12/22 15:31 37.5 C 65 16 100/59 L 95 Room Air [place] [address] / Director: Ugo Stokes M.D. Clinical Laboratory Report Name: MANAS BURNETTE Acct: [id number] Status: ADM [place] : 1945 [facility] [place]: 09/10/22 Age: 76 Sex: F Dis Date: Loc: Medical/Surgical/Ortho [address] [place] [address]/Bed: N[facility] Spec: [id number] Collected: 09/10/22 Received: 09/10/[address]: Hever Galloway, DPM, MS Source: Toe,Right Second OV Order: Ordered: Aer/Tatyana Cult/Sm Comments: Comment 1: Right Distal Phalanx Procedure Result Verified Site Gram Stain Final 09/11/22 Gram Stain Result No WBCs Seen No Organisms Seen Aero/Tatyana Cult Preliminary 09/12/22-144 Organism 1 Gram negative bacilli Quantity Few Sens Sensitivities to Follow Name: MANAS BURNETTE : 1945 PAGE 1 Printed: 09/12/22 9549 END OF REPORT
[2022-09-13 07:49] LABS: Creatinine Clr Calc Pharmacy 53.9 ml/min; Est GFR (African American) 70.6 ml/min; Est GFR (Non-African American) 60.9 ml/min
[2022-09-13] MEDS: CEFEPIME 2,000 MG in SYRINGE 0 ML IV SCH (08:14)
[2022-09-13] MEDS: PREGABALIN 100 MG CAP PO SCH (08:14)
[2022-09-13] MEDS: METOPROLOL SUCC 50MG EXT REL TAB PO SCH (08:14)
[2022-09-13] MEDS: RANOLAZINE 500 MG ER TAB PO SCH (08:39)
[2022-09-13] MEDS: PANTOprazole 40 MG TAB PO SCH (08:39)
[2022-09-13] MEDS: INSULIN ASPART PER UNIT CHARGE SC SCH ×2 (08:40→13:03)
--- NOTE | 2022-09-13 15:17 | Discharge Summary ---
Date of Service September 13, 2022 Admission HPI Per Admitting Provider This is a 76-year-old female with PMHx of DM type II, history of subdural hemorrhage after mechanical fall sustained in June 2021, atrial fibrillation s/p pacemaker, on chronic anticoagulation with Xarelto, COPD, GERD, remote history of breast cancer who presents to the hospital from Dr. Galloway's office with podiatry for right great toe osteomyelitis. She reports she was stepped on her dog 3 weeks ago, and wound continued to worsen. Patient did take Keflex x1 week, had a x-ray obtained in the outpatient setting which was suspicious for osteomyelitis. She was referred here from the office for possible great toe amputation. About 2 weeks ago the wound became red up past her knee, foot was swollen, and was started on kelfex on Friday 09/08. After being seen in the outpatient office earlier today, Dr. Galloway thought that this should not wait any longer, and therefore sent her to the ER. She denies any fever, chills or sweats. Reports walking is very painful, has nearly fallen, denies using ambulatory devices. Admission Exam Per Admitting Provider General: awake, alert, no apparent distress Head: Normocephalic, atraumatic ENT: PERRL, EOMI, no pharyngeal exudate, mucous membranes moist Chest: Clear to auscultation, on room air, +pacemaker in left chest wall, no adventitious breath sounds Cardiac: Regular rate and rhythm, no murmur, no JVD, normal peripheral pulses, good capillary refill Abdominal: obese, NABS x 4 quadrants, soft, nondistended, nontender to palpation, no rebound or guarding Extremities: RLE second toe with wound involving the tip of the toe, erythema extends to the mid haynes, edema 2+ bilateral leg, otherwise normal inspection, no peripheral edema or erythema, calfs nontender to palpation Psych: Normal mood and affect, slightly anxious awaiting procedure Neuro: AAO x 3, strength intact bilaterally and rated 5/5, no motor deficits, speech is clear, no peripheral sensory deficits Principal Diagnosis Osteomyelitis of second toe of right foot status post right second toe amputation Discharge Exam General: awake, alert, no apparent distress Head: Normocephalic, atraumatic ENT: PERRL, EOMI, no pharyngeal exudate, mucous membranes moist Chest: Clear to auscultation, on room air, +pacemaker in left chest wall, no adventitious breath sounds Cardiac: Regular rate and rhythm, no murmur, no JVD, normal peripheral pulses, good capillary refill Abdominal: obese, NABS x 4 quadrants, soft, nondistended, nontender to palpation, no rebound or guarding Extremities: RLE second toe with wound involving the tip of the toe, erythema extends to the mid haynes, edema 2+ bilateral leg, otherwise normal inspection, no peripheral edema or erythema, calfs nontender to palpation Psych: Normal mood and affect, slightly anxious awaiting procedure Neuro: AAO x 3, strength intact bilaterally and rated 5/5, no motor deficits, speech is clear, no peripheral sensory deficits Discharge Data Allergies Allergy/AdvReac Type Severity Reaction Status Date / Time azithromycin Allergy Unknown Unknown Verified 04/20/19 10:23 chocolate flavor Allergy Unknown "my airway Unverified 04/22/10 07:19 can close off" coconut AdvReac Unknown "nausea Verified 04/22/10 08:14 and vomiting" Consultations 09/10/22 15:25 ED Decision to Admit Stat 09/10/22 16:10 Consult Orthopedic Surgery Routine Procedures Performed Operation Date: 09/10/22 17:20 Actual Procedures p Right Second Toe Amputation(Right) - Hever Galloway DPM, [place] Hospital Course (1) Osteomyelitis of second toe of right foot: (2) Diabetes mellitus with diabetic polyneuropathy: (3) Atrial fibrillation: (4) Chronic anticoagulation: (5) Hypomagnesemia: (6) S/P cardiac pacemaker procedure: Patient had a wound when she stepped on her dog 3 weeks ago; wound continued to worsen. Patient was prescribed Keflex for 1 week Outpatient x-ray was suspicious for osteomyelitis. Patient was then referred to Dr. Galloway for possible amputation. Patient underwent right second toe amputation on 09/10/2022 And was started on cefepime and vancomycin. Intra-Op culture shows Morganella morganii; pansensitive Discussed with orthopedics; source control achieved with amputation. Patient was seen by orthotics; fitted for surgical shoe. PT OT evaluation was done; recommended home at discharge Patient was discharged with 1 more week of Augmentin. Patient to follow-up with podiatry and PCP after discharge. Please note the above document was generated using voice recognition software. It may contain grammatical, syntax or spelling errors. Any formal questions or concerns about the content, text or information contained within the body of this dictation should be directly addressed to the provider for clarification Total Time Total Time Spent Total Time Spent (In Minutes): 45 Total Time Includes: Examination of the Patient, Discharge Planning, Medication Reconciliation, Communication With Other Providers and Other Discharge Plan Discharge Items Patient Disposition: Home - Self-Care Reason For Visit: OSTEOMYELITIS Discharge Diagnosis: osteomyelitis of second toe of right foot is status post amputation Condition on Discharge: Good Activity: Resume your previous activity Non-emergency contact: Primary Care Provider Call non-emergency contact if: you have any medication questions and your symptoms worsen Follow-up/Referrals: Victoriano Durant MD [Primary Care Provider] - (Dr Durant's office will call you with a follow up appointment.) Diet: Regular Addtl Attending Provider Instructions: You were admitted to the hospital due to osteomyelitis of second toe of right foot. You underwent amputation by Dr. Galloway on 09/11/2022. Your wound culture grew Morganella morganii (Bacteria) for which you are prescribed Augmentin to be taken twice daily for 7 more days. Please follow-up with Dr. Galloway sometime this week. Please follow-up with your primary care doctor as scheduled. Pending Studies at Discharge: No Stand-Alone Forms: [facility] DutyCalculator, Smoking Cessation Medications and DC Order Prescriptions: New amoxicillin-pot clavulanate 875-125 mg tablet 1 tab PO BID 7 Days Qty: 14 0RF Continued atorvastatin 40 mg tablet 40 mg PO HS metoprolol succinate 50 mg tablet extended release 24 hr 50 mg PO QAM pregabalin 200 mg capsule 200 mg PO QAM ranolazine 500 mg tablet extended release 12 hr 500 mg PO QAM Xarelto 20 mg tablet 20 mg PO QAM Jardiance 25 mg tablet 25 mg PO DAILY Trulicity 3 mg/0.5 mL pen injector 3 mg SUBCUT USEASDIRECTD Rx Instructions: Takes once per week on omeprazole 40 mg Capsule,Delayed Release(Dr/Ec) 40 mg PO DAILY insulin degludec 100 unit/mL (3 mL) Insulin Pen 50 unit SUBCUT DAILY Discontinued cephalexin 500 mg capsule 500 mg PO Q8H Discharge Orders: Discharge Order (Routine); Ordered 09/13/22 Ordered By: Alex Herrmann/Other Patient Handouts: Managing Type 2 Diabetes, [facility] for Diabetes Admission Data Admit Date/Time: 09/10/22 17:51 Attending Provider: Alex Mendoza Admit Provider: Nanette Dukes Primary Care Provider: Victoriano Durant Other Providers: Hever Galloway ; Nanette Dukes Other Interventions: Discharge Summary Assessment (RN) Last Done: 09/13/22 13:17
[2022-09-13] MEDS ORDERED: RIVAROXABAN 15 MG TAB PO SCH (16:30)
== END 2022-09-13 15:28 | disposition home or self-care (01) | DRG 617 ==
LOC: ED 13:31 → 3N 15:15 → SUATTDRO 17:51
DX: Z88.1 Allergy status to other antibiotic agents; W55.89XA Other contact with other mammals, initial encounter; Z95.0 Presence of cardiac pacemaker; I48.91 Unspecified atrial fibrillation; Z66 Do not resuscitate; Z79.84 Long term (current) use of oral hypoglycemic drugs; Z79.899 Other long term (current) drug therapy; E11.621 Type 2 diabetes mellitus with foot ulcer; E11.42 Type 2 diabetes mellitus with diabetic polyneuropathy; E83.42 Hypomagnesemia; Z91.018 Allergy to other foods; Z79.85 Long-term (current) use of injectable non-insulin antidiabetic drugs; E11.69 Type 2 diabetes mellitus with other specified complication; Z79.4 Long term (current) use of insulin; L97.519 Non-pressure chronic ulcer of other part of right foot with unspecified severity; M86.171 Other acute osteomyelitis, right ankle and foot; Z79.01 Long term (current) use of anticoagulants